=== PATIENT | male | born 1940 | race Caucasian/White ===

== ENCOUNTER 2022-04-15 05:25 | Day surgery (SDC) | payer OTHER ==
[~2022-04-15] VITALS: Ht 172.7 cm; Wt 74.8 kg
[~2022-04-15 05:25] MED LIST: AMARYL2 MG PO; AMLODIPINE BESYL5 MG PO; ASPIRIN EC81 MG PO; ATENOLOL25 M1 PO; CO Q-10200 MG PO; IBU800 MG PO; LISINOPRIL5 MG PO; MAGNESIUM500 MG PO; METFORMIN HCL500 M1 PO; PANTOPRAZOLE SO40 MG PO; VITAMIN D350 MCG PO; ZINC50 M1 PO; cannabis oil PO
[2022-04-16 08:28] LABS: BASOPHIL 0.2 % (0-2); EOSINOPHIL 0 % (0-7); HCT 33.8 % (42.0-52.0); HGB 11.1 g/dl (13.2-18.0); LYMPHOCYTE 8.3 % (15-48); MCH 28.7 pg (25.0-31.0); MCHC 32.8 g/dL (32.0-36.0); MCV 87.3 fL (78.0-100.0); MONOCYTE 6.1 % (0-12); NEUTROPHIL 84.7 % (41-80); NRBC 0; PLT 198 K/uL (150-400); RBC 3.87 M/uL (4.70-6.00); RDW 16.5 % (11.5-14.0); WBC 10.1 K/uL (4.0-10.5)
[2022-04-16] MEDS ORDERED: FEOSOL325 MG PO (08:31)
[2022-04-16] MEDS ORDERED: XARELTO10 MG PO (08:31)
[2022-04-16] MEDS ORDERED: OXYCODONE-ACET1 EAC1 PO (08:31)
[2022-04-16 08:47] LABS: BUN/CREAT RATIO (CALC) 29.3 RATIO; CREATININE 0.75 mg/dL (0.67-1.17); POTASSIUM 4.2 mmol/L (3.5-5.1)
== END 2022-04-16 10:30 | disposition home health service (06) ==
LOC: FAS 05:25 → FMS 08:55 → FSDC 04-16 08:32 → FMS 04-16 08:47 → FAS 04-16 10:30
PROVIDERS: Legal Medicine
DX: M17.11 Unilateral primary osteoarthritis, right knee (principal); M21.161 Varus deformity, not elsewhere classified, right knee; G89.18 Other acute postprocedural pain; I10 Essential (primary) hypertension; E11.9 Type 2 diabetes mellitus without complications; E78.5 Hyperlipidemia, unspecified; I25.10 Atherosclerotic heart disease of native coronary artery without angina pectoris; Z95.5 Presence of coronary angioplasty implant and graft; Z79.4 Long term (current) use of insulin; Z79.01 Long term (current) use of anticoagulants; Z79.899 Other long term (current) drug therapy; Z88.8 Allergy status to other drugs, medicaments and biological substances
CPT/HCPCS: 36415; 73560; 80048; 85025; 86850; 86900; 86901; 94010; 94762; 97110; 97162; 97165; 97530-GP; 97535; C1713; C1776; J0171; J0697; J0735; J1100; J1885; J2250; J2270; J2405; J2704; J2795; J3010; J7120